=== PATIENT | female | born 1995 | race American Indian/Alaskan Native ===

== ENCOUNTER 2021-08-02 09:01 | Emergency (ER) | payer OTHER ==
[2021-08-02] MEDS ORDERED: IBUPROFEN 800 MG TAB PO ONE (09:17)
[2021-08-02] MEDS ORDERED: HYDROcodone/ACETAMINOPHEN 5-325 MG TAB PO ONE (09:17)
--- NOTE | 2021-08-02 09:45 | Emergency Department Report ---
ED Upper Extremity Inj HPI - General Chief Complaint: Extremity Injury, Upper Stated Complaint: LEFT WRIST INJURY Time Seen by Provider: 08/02/21 09:17 Source: patient Mode of arrival: Ambulatory Limitations: No Limitations - History of Present Illness Initial Comments: 26 yo comes to ER p [facility]ILIAM last night co left wrist pain neurovasc intact sensation intact radial and ulnar pulse plus 2 rapid cap refill no other injury fall witnessed no loc MD Complaint: Injury to:: left -: Sudden Other Extremity Injury: Wrist: Left Other Injuries: none Handedness: right Place: home Improves With: immobilization Worsens With: movement of extremity Context: fall Associated Symptoms: denies other symptoms. denies: weakness, numbness, neck pain, suspects foreign body, nausea/vomiting, heard/felt popping sensat - Related Data Allergies Allergy/AdvReac Type Severity Reaction Status Date / Time No Known Allergies Allergy Unverified 08/02/21 09:05 ED Review of Systems ROS: Stated complaint: LEFT WRIST INJURY Other details as noted in HPI Comment: All other systems reviewed and negative ED Past Medical Hx - Past Medical History Previous Medical History?: Yes - Surgical History Past Surgical History?: Yes - Family History Family history: no significant - Social History Smoking Status: Never Smoker Substance Use Type: None ED Physical Exam - General Limitations: No Limitations General appearance: alert, in no apparent distress - Head Head exam: Present: atraumatic, normocephalic - Eye Eye exam: Present: normal appearance - ENT ENT exam: Present: mucous membranes moist - Neck Neck exam: Present: normal inspection - Respiratory Respiratory exam: Present: normal lung sounds bilaterally. Absent: respiratory distress - Cardiovascular Cardiovascular Exam: Present: regular rate, normal rhythm. Absent: systolic murmur, diastolic murmur, rubs, gallop - GI/Abdominal GI/Abdominal exam: Present: soft, normal bowel sounds - Extremities Exam Extremities exam: Present: normal inspection - Back Exam Back exam: Present: normal inspection - Neurological Exam Neurological exam: Present: alert, oriented X3 - Psychiatric Psychiatric exam: Present: normal affect, normal mood - Skin Skin exam: Present: warm, dry, intact, normal color. Absent: rash ED Course Vital Signs 08/02/21 09:07 Temperature 98.7 F Pulse Rate 71 Respiratory 17 Rate Blood Pressure 133/78 [Right] O2 Sat by Pulse 98 Oximetry ED Medical Decision Making - Radiology Data Radiology results: report reviewed, image reviewed fx neg - Medical Decision Making xray neg for fx maryjo for comfort RICE medicated for pain in ER dc home with dc plan of care including diet, activity, RICE, follow up. Pt verbalizes understanding of plan of care. Remains neurovasc intact Vital Signs 08/02/21 09:07 Temperature 98.7 F Pulse Rate 71 Respiratory 17 Rate Blood Pressure 133/78 [Right] O2 Sat by Pulse 98 Oximetry - Differential Diagnosis ro fx Critical care attestation.: If time is entered above; I have spent that time in minutes in the direct care of this critically ill patient, excluding procedure time. ED Disposition Clinical Impression: Fall Qualifiers: Encounter type: initial encounter Qualified Code(s): W19.XXXA - Unspecified fall, initial encounter Contusion of wrist, left Qualifiers: Encounter type: initial encounter Qualified Code(s): S60.212A - Contusion of left wrist, initial encounter Disposition: HOME / SELF CARE / HOMELESS Is pt being admited?: No Does the pt Need Aspirin: No Condition: Stable Instructions: Contusion, [id number] Additional Instructions: REST ICE ELEVATE MARYJO FOR COMFORT USE ONLY FOR 48 HOURS THEN REMOVE AND USE ARM-- OVER USE OF MARYJO CAN CAUSE DISUSE INJURY MOTRIN OR TYLENOL FOR PAIN XRAY NORMAL NO FRACTURE FOLLOW UP WITH PCP OR ORTHO MD NEXT WEEK IF PAIN PERSISTS REFERRAL BELOW Referrals: PRIMARY MD SHAMAR [Primary Care Provider] - 3-5 Days KISHA LESLIE MD [Staff Physician] - 3-5 Days GARETH ISAACS MD [Staff Physician] - 3-5 Days Time of Disposition: 11:00
--- NOTE | 2021-08-02 11:01 | XRay Report ---
LEFT WRIST 3 VIEWS INDICATION: pain sp fall. COMPARISON: None. IMPRESSION: No acute osseous or soft tissue abnormality. No joint pathology. Signer Name: Juan Hodges Jr, MD Signed: 08/02/2021 10:57 AM Workstation Name: [id number]
[2021-08-02 11:49] VITALS: BP 115/75
== END 2021-08-02 11:49 | disposition home or self-care (01) ==
LOC: ED 09:01
DX: S60.212A Contusion of left wrist, initial encounter (principal); W19.XXXA Unspecified fall, initial encounter; Y93.89 Activity, other specified; Y92.89 Other specified places as the place of occurrence of the external cause; Y99.8 Other external cause status
CPT/HCPCS: 99283